=== PATIENT | female | born 1980 | race African-American/Black ===

== ENCOUNTER 2019-03-11 11:04 | Emergency (ER) | payer OTHER ==
[2019-03-11 11:10] VITALS: TEMP 99; BMI 25.0
--- NOTE | 2019-03-11 11:25 | PDOC ---
History of Present Illness - General Chief Complaint: Pain Stated Complaint: ABD PAIN/ LOWER BACK PAIN Time Seen by Provider: 03/11/19 11:16 History Source: Patient Exam Limitations: No Limitations Past History - Travel Traveled outside of the country in the last 30 days: No Close contact w/someone who was outside of country & ill: No - Past Medical History Allergies/Adverse Reactions: Allergies Allergy/AdvReac Type Severity Reaction Status Date / Time No Known Allergies Allergy Verified 03/11/19 11:07 COPD: No - Surgical History Abdominal Surgery: Yes (tubal ligation) Gastric Stapling: Yes (bypass) - Suicide/Smoking/Psychosocial Hx Smoking History: Never smoked Have you smoked in the past 12 months: No Information on smoking cessation initiated: No Hx Alcohol Use: No Drug/Substance Use Hx: No Review of Systems - Review of Systems Able to Perform ROS?: Yes Comments:: 03/11/19 11:59 CONSTITUTIONAL: Absent: fever, chills, diaphoresis, generalized weakness, malaise, loss of appetite HEENT: Absent: rhinorrhea, nasal congestion, throat pain, throat swelling, difficulty swallowing, mouth swelling, ear pain, eye pain, visual Changes CARDIOVASCULAR: Absent: chest pain, loss of consciousness, palpitations, irregular heart rate, peripheral edema RESPIRATORY: Absent: cough, shortness of breath, dyspnea with exertion, orthopnea, wheezing, stridor, hemoptysis GASTROINTESTINAL: Present: abdominal pain Absent: abdominal distension, nausea, vomiting, diarrhea, constipation, melena, hematochezia GENITOURINARY: Present: urnary frequency, pelvic pressure, flank pain Absent: dysuria, frequency, urgency, hesitancy, hematuria, flank pain, genital pain MUSCULOSKELETAL: Absent: myalgia, arthralgia, joint swelling SKIN: Absent: rash, itching, pallor HEMATOLOGIC/IMMUNOLOGIC: Absent: easy bleeding, easy bruising, lymphadenopathy, frequent infections ENDOCRINE: Absent: unexplained weight gain, unexplained weight loss, heat intolerance, cold intolerance NEUROLOGIC: Absent: headache, focal weakness or paresthesias, dizziness, unsteady gait, seizure, mental status changes, bladder or bowel incontinence PSYCHIATRIC: Absent: anxiety, depression, suicidal or homicidal ideation, hallucinations. Is the patient limited Pashto proficient: No *Physical Exam - Vital Signs Last Vital Signs Temp Pulse Resp BP Pulse Ox 99 F 77 18 122/83 98 03/11/19 11:07 03/11/19 11:07 03/11/19 11:07 03/11/19 11:07 03/11/19 11:07 - Physical Exam Comments: 03/11/19 12:04 GENERAL: Well developed, well nourished. Awake and alert. No acute distress. HEENT: Normocephalic, atraumatic. PERRLA, EOMI. No conjunctival pallor. Sclera are non- icteric. Moist mucous membranes. Oropharynx is clear. NECK: Supple. Full ROM. No JVD. Carotid pulses 2+ and symmetric, without bruits. No thyromegaly. No lymphadenopathy. CARDIOVASCULAR: Regular rate and rhythm. No murmurs, rubs, or gallops. Distal pulses are 2+ and symmetric. PULMONARY: No evidence of respiratory distress. Lungs clear to auscultation bilaterally. No wheezing, rales or rhonchi. ABDOMINAL: TTP of the LLQ, suprapubic area. Soft. Non-tender. Non-distended. No rebound or guarding. No organomegaly. Normoactive bowel sounds. MUSCULOSKELETAL Normal range of motion at all joints. No bony deformities or tenderness. (+) CVA tenderness. Pelvic: External genitalia normal without lesions. Vaginal vault is clear without blood or discharge. Cervix is long and closed. (+) CMT. Uterus is nontender and normal in size. Adnexa are nontender and without masses. EXTREMITIES: No cyanosis. No clubbing. No edema. No calf tenderness. SKIN: Warm and dry. Normal capillary refill. No rashes. No jaundice. NEUROLOGICAL: Alert, awake, appropriate. Cranial nerves 2-12 intact. No deficits to light touch and temperature in face, upper extremities and lower extremities. No motor deficits in the in face, upper extremities and lower extremities. Normoreflexic in the upper and lower extremities. Normal speech. Toes are down- going bilaterally. Gait is normal without ataxia. PSYCHIATRIC: Cooperative. Good eye contact. Appropriate mood and affect. ED Treatment Course - LABORATORY CBC & Chemistry Diagram: 03/11/19 11:30 03/11/19 11:30 Medical Decision Making - Medical Decision Making 03/11/19 12:07 The patient is a 38-year-old female past medical history kidney stones, who presents to the ER today for lower abdominal pain, back pain and urinary frequency. She states that she feels like she has a pressure that is not relieved. She states that the pain is colicky and comes and goes. She states that she does have the pain it is very sharp. Denies fevers, chills, nausea, vomiting, diarrhea, chest pain and shortness of breath. Patient's last menstrual cycle was 2 weeks ago. A/P: Lower abdominal pain On exam patient with suprapubic, left lower quadrant tenderness and left flank pain. Pelvic exam with possible CMT tenderness Differential diagnosis includes but is not limited to UTI, Jori, stone, appendicitis, diverticulitis Basic labs, urine, IV started and ordered Patient sent to the main ER for further level of care. Signout given to POLLY Puckett. *DC/Admit/Observation/Transfer Diagnosis at time of Disposition: Abdominal pain Qualifiers: Abdominal location: lower abdomen, unspecified Qualified Code(s): R10.30 - Lower abdominal pain, unspecified - Referrals Referrals: Tiffani Kenny MD [Primary Care Provider] - - Patient Instructions - Post Discharge Activity
[2019-03-11] MEDS ORDERED: SODIUM CHLORIDE 1,000 ML IV STA (11:35)
[2019-03-11 11:58] LABS: URINE APPEARANCE CLEAR; URINE BILIRUBIN NEGATIVE (NEGATIVE); URINE COLOR YELLOW; URINE GLUCOSE (UA) NEGATIVE (NEGATIVE); URINE KETONE NEGATIVE (NEGATIVE); URINE LEUK ESTERASE NEGATIVE (NEGATIVE); URINE NITRITE NEGATIVE (NEGATIVE); URINE PROTEIN NEGATIVE (NEGATIVE); URINE UROBILINOGEN 0.2 mg/dL (0.2-1.0)
[2019-03-11 12:00] LABS: HCG,QUALITATIVE URINE Negative
[2019-03-11 12:19] LABS: BASO % 0.2 % (0-2.0); EOS % 0.7 % (0-4.5); HEMOGLOBIN 8.5 GM/dL (10.7-15.3); LYMPH % 13.4 % (8-40); MCHC 30.4 g/dl (32.0-36.0); MEAN CELL VOLUME 65.3 fl (80-96); MEAN PLT VOLUME 9.4 fl (7.5-11.1); MONO % 5.7 % (3.8-10.2); RBC 4.29 M/mm3 (3.60-5.2); RDW 21.1 % (11.6-15.6); WHITE BLOOD COUNT 11.9 K/mm3 (4.0-10.0)
[2019-03-11] MEDS ORDERED: ONDANSETRON 4 MG/2 ML VIAL IVPUSH ONE (12:19)
[2019-03-11] MEDS ORDERED: KETOROLAC TROMETHAMINE 30 MG/1 ML VIAL IVPUSH ONE (12:19)
--- NOTE | 2019-03-11 12:19 | PDOC ---
*Physical Exam - Vital Signs Last Vital Signs Temp Pulse Resp BP Pulse Ox 99 F 77 18 122/83 98 03/11/19 11:07 03/11/19 11:07 03/11/19 11:07 03/11/19 11:07 03/11/19 11:07 ED Treatment Course - LABORATORY CBC & Chemistry Diagram: 03/11/19 11:30 03/11/19 11:30 - ADDITIONAL ORDERS Additional order review: Laboratory Results 03/11/19 11:30 Urine Color Yellow Urine Appearance Clear Urine pH 8.0 Ur Specific [place] 1.017 Urine Protein Negative Urine Glucose (UA) Negative Urine Ketones Negative Urine Blood Negative Urine Nitrite Negative Urine Bilirubin Negative Urine Urobilinogen 0.2 Ur Leukocyte Esterase Negative Urine HCG, Qual Negative - RADIOLOGY Radiology Studies Ordered: Category Date Time Status SPIRAL- RENAL-STONE CT [CT] Stat CT Scan 03/11/19 11:51 Ordered Medical Decision Making - Medical Decision Making 03/11/19 11:18 Patient received in signout from fast track due to lower abdominal pain and back pain concerning for either pyelonephritis or renal colic. Patient pending labs urine and spiral CT. 03/11/19 13:55 Laboratory Tests 03/11/19 03/11/19 03/11/19 11:30 11:30 11:30 WBC 11.9 H Hgb 8.5 L Hct 28.0 L Absolute Neuts (auto) 9.5 H Sodium 140 Potassium 4.4 Chloride 107 Carbon Dioxide 28 Anion Gap 5 L BUN 9.3 Creatinine 0.6 Calcium 8.9 Total Bilirubin 0.3 AST 22 ALT 21 Alkaline Phosphatase 96 Total Protein 7.8 Albumin 3.9 Urine Ketones Negative Urine Nitrite Negative Urine HCG, Qual Negative 03/11/19 15:03 CT shows unremarkable spleen pancreas and adrenal glands. No gallstones. No evidence of intraperitoneal lymphadenopathy or abdominal aortic aneurysm. There is no hydronephrosis, renal masses renal or renal renal calculi. The urinary bladder and uterus are unremarkable. There is no evidence of bowel obstruction. There is no inflammatory changes of the appendix or colon. No fluid collections identified. Patient ordered for a transvaginal ultrasound due to mild CMT and location of discomfort 03/11/19 16:02 Ultrasound shows a 1.7 complex right ovarian cyst probably hemorrhagic. Small amount of free fluid seen in the pelvis. No evidence of ovarian torsion. *DC/Admit/Observation/Transfer Diagnosis at time of Disposition: Ovarian cyst Abdominal pain Qualifiers: Abdominal location: lower abdomen, unspecified Qualified Code(s): R10.30 - Lower abdominal pain, unspecified - Discharge Dispostion Disposition: HOME Condition at time of disposition: Improved - Prescriptions Prescriptions: Ibuprofen [Motrin -] 600 mg PO TID PRN #21 tablet PRN Reason: Pain - Referrals Referrals: Tiffani Kenny MD [Primary Care Provider] - - Patient Instructions Printed Discharge Instructions: DI for Ovarian Cyst Additional Instructions: At this time recommend following up with your FILM TECHNICIAN in taking a copy of ultrasound report with you. If symptoms of pain worsen please return to the ED. otherwise take Motrin 600 mg every 8 hours for discomfort or placed heating pad to the affected area. - Post Discharge Activity
[2019-03-11 12:24] LABS: ALBUMIN 3.9 g/dl (3.4-5.0); BILIRUBIN,TOTAL 0.3 mg/dL (0.2-1); BLOOD UREA NITROGEN 9.3 mg/dL (7-18); CALCIUM 8.9 mg/dL (8.5-10.1); CREATININE 0.6 mg/dL (0.55-1.3); POTASSIUM 4.4 mmol/L (3.5-5.1); TOT PROT 7.8 g/dl (6.4-8.2)
[2019-03-11] MEDS ORDERED: ONDANSETRON 4 MG/2 ML VIAL ONE (12:35)
[2019-03-11] MEDS ORDERED: KETOROLAC TROMETHAMINE 30 MG/1 ML VIAL ONE (12:35)
[2019-03-11 12:56] LABS: MCH 19.8 pg (25.7-33.7); PLATELET COUNT 427 K/MM3 (134-434)
[2019-03-11 12:58] LABS: INR 1.03 (0.83-1.09); PROTHROMBIN TIME (PATIENT) 12.2 SEC (9.7-13.0)
[2019-03-11 14:57] LABS: ANISOCYTOSIS 2+; MACROCYTOSIS 0; OVALOCYTE 2+; PLATELET ESTIMATE NORMAL
[2019-03-11 15:52] VITALS: BP 119/69; PULSE 63
== END 2019-03-11 16:39 | disposition home or self-care (01) ==
LOC: JERFT 11:04 → JER 11:04
PROC: 3E0337Z Introduction of Electrolytic and Water Balance Substance into Peripheral Vein, Percutaneous Approach (ICD-10-PCS; principal; 2019-03-11)
PROC: 3E033GC Introduction of Other Therapeutic Substance into Peripheral Vein, Percutaneous Approach (ICD-10-PCS; 2019-03-11)
PROC: 3E0333Z Introduction of Anti-inflammatory into Peripheral Vein, Percutaneous Approach (ICD-10-PCS; 2019-03-11)
DX: R10.30 Lower abdominal pain, unspecified (principal); N83.201 Unspecified ovarian cyst, right side; Z87.442 Personal history of urinary calculi
CPT/HCPCS: 36415; 74176-TC; 76830-TC; 80053; 81003; 84703; 85025; 85610; 87086; 87491; 87591; 96361; 96374; 96375; 99282-25; J7030

== ENCOUNTER 2021-10-09 08:15 | Day surgery (SDC) | payer OTHER ==
[2021-10-07 15:22] VITALS: BMI 27.3
[2021-10-09] MEDS ORDERED: PROPOFOL 20 ML ONE (08:30)
[2021-10-09] MEDS ORDERED: LIDOCAINE HCL/PF 2% SDV 5ML VIAL ONE (08:30)
[2021-10-09 09:12] VITALS: TEMP 97.3
[2021-10-09 09:33] VITALS: BP 117/86; PULSE 76
== END 2021-10-09 09:20 | disposition home or self-care (01) ==
LOC: FASU-ENDO 08:15
PROVIDERS: ATTEND Internal Medicine Gastroenterology
PROC: 0DB68ZX Excision of Stomach, Via Natural or Artificial Opening Endoscopic, Diagnostic (ICD-10-PCS; principal; 2021-10-09 08:46)
DX: K31.7 Polyp of stomach and duodenum (principal); K29.50 Unspecified chronic gastritis without bleeding; R10.13 Epigastric pain; Z98.84 Bariatric surgery status
CPT/HCPCS: 81025; 88305-TC; 88342-TC

== ENCOUNTER 2023-11-06 07:06 | Emergency (ER) | payer OTHER ==
[2023-11-06 07:25] VITALS: BP 126/80; PULSE 87; RESP 16; TEMP 98.6; BMI 29.6
[2023-11-06] MEDS ORDERED: diazePAM 5 MG TABLET ONE (07:55)
[2023-11-06] MEDS: diazePAM 5 MG TABLET PO ONE (08:03)
[2023-11-06] MEDS ORDERED: KETOROLAC TROMETHAMINE 30 MG/1 ML VIAL ONE (10:37)
[2023-11-06] MEDS: KETOROLAC TROMETHAMINE 30 MG/1 ML VIAL IM ONE (10:41)
== END 2023-11-06 10:42 | disposition home or self-care (01) ==
LOC: JER 07:06
PROC: 3E0233Z Introduction of Anti-inflammatory into Muscle, Percutaneous Approach (ICD-10-PCS; principal; 2023-11-06)
DX: M54.2 Cervicalgia (principal); R51.9 Headache, unspecified; R20.2 Paresthesia of skin; W00.0XXD Fall on same level due to ice and snow, subsequent encounter
CPT/HCPCS: 70450-TC; 72125-TC; 96372; 99284-25